=== PATIENT | female | born 1935 | race Caucasian/White ===

== ENCOUNTER 2017-09-10 10:29 | Inpatient (IN) | payer OTHER ==
[~2017-09-10] VITALS: Ht 152.4 cm; Wt 81.6 kg
[~2017-09-10 10:29] MED LIST: ACIDOPHILUS LA1 EACH PO; ALENDRONATE SOD70 MG; CELEXA PO; CIPRO500 MG PO; CITALOPRAM HBR40 MG; FOSAMAX70 MG; FOSAMAX70 MG PO; GLIMEPIRIDE4 MG; GLIMEPIRIDE4 MG PO; INVANZ1 G/VIAL IV; LEVAQUIN500 MG PO; LOTRISONE CREAM45 GM TOP; METFORMIN HCL1000 M1; METFORMIN HCL1000 M1 PO; METOPROLOL SUCC50 MG PO; MONTELUKAST SOD10 MG; MONTELUKAST SOD10 MG PO; NEURONTIN300 MG PO; POLY119PG PO; TRAM1TAB98
[2017-09-10] MEDS ORDERED: METFORMIN HCL500 MG (10:40)
[2017-09-17] MEDS ORDERED: GLIMEPIRIDE4 MG PO (10:58)
[2017-09-17] MEDS ORDERED: METOPROLOL SUCC50 MG PO (10:59)
[2017-09-17] MEDS ORDERED: METFORMIN HCL1000 M1 PO (10:59)
== END 2017-09-17 15:37 | disposition home health service (06) | DRG 872 ==
LOC: ER 10:29 → MEDJ 09-11 08:44 → ICU-2 09-11 08:44 → MEDJ 09-14 09:02
PROC: 8E0ZXY6 Isolation (ICD-10-PCS; principal; 2017-09-14)
DX: A41.51 Sepsis due to Escherichia coli [E. coli] (principal); N39.0 Urinary tract infection, site not specified; Z16.12 Extended spectrum beta lactamase (ESBL) resistance; I10 Essential (primary) hypertension; E11.65 Type 2 diabetes mellitus with hyperglycemia; J45.998 Other asthma; E87.6 Hypokalemia; B96.4 Proteus (mirabilis) (morganii) as the cause of diseases classified elsewhere

== ENCOUNTER 2017-11-19 09:35 | Outpatient (CLI) | payer OTHER ==
[~2017-11-19 09:35] MED LIST changes: +METFORMIN HCL500 MG
== END 2017-11-19 09:53 | disposition home or self-care (01) ==
LOC: RAD 09:35
DX: E11.9 Type 2 diabetes mellitus without complications (principal); I10 Essential (primary) hypertension

== ENCOUNTER 2019-10-10 11:15 | Inpatient (IN) | payer OTHER ==
[~2019-10-10] VITALS: Ht 152.4 cm; Wt 81.6 kg
[2019-10-10] MEDS ORDERED: ITCH RELIEF15 G1 TP (11:37)
--- NOTE | 2019-10-10 11:38 | NUR ---
PACIENTE ALERTA Y DESORIENTADA EN TIEMPO, EN COMPANIA DE CALIXTO HIJA QUIEN REFIERE LA PACIENTE PRESENTA DEBILIDAD Y DESORIENTACION HACE APROX DEMETRI SEMANA. HIJA REFIERE QUE LA PACIENTE LO UNICO QUE ESTA COMIENDO ES LIQUIDOS, QUE ESTA PRESENTANDO DEBILIDAD EN L[place] PIER[place]S Y NO CAMINA, TAMBIEN REFIERE INFECCION DE ORINA Y HONGO EN LA LENGUA DESDE HACE DEMETRI SEMANA. PACIENTE SE ENCUENTRA BAJO TRATAMIENTO CON BACTRIN Q12HRS X 5 ROGERS.
--- NOTE | 2019-10-10 13:12 | NUR ---
PACIENTE ALERTA Y ORIENTADA EN PERSONA Y LUGAR, EN COMPANIA DE CAL[place] HIJA QUIEN ES ORIENTADA SOBRE ORDENES MEDICAS, REFIEREN ENTENDER. SE COLECTAN MUESTRAS DE ISAAC, SE CANALIZA VENA Y SE ADMINISTRA KHAI ORDENADO.
[2019-10-11] MEDS ORDERED: METOPROLOL TART50 MG PO (14:58)
== END 2019-10-19 15:41 | disposition home or self-care (01) | DRG 690 ==
LOC: ER 11:15 → SURH 16:34 → MEDI 16:34 → MEDJ 16:34 → SURH 17:28
PROVIDERS: ADMIT Internal Medicine; ATTEND Internal Medicine
PROC: BW4GZZZ Ultrasonography of Pelvic Region (ICD-10-PCS; principal; 2019-10-10)
PROC: BW40ZZZ Ultrasonography of Abdomen (ICD-10-PCS; 2019-10-10)
PROC: 4A033R1 Measurement of Arterial Saturation, Peripheral, Percutaneous Approach (ICD-10-PCS; 2019-10-10)
PROC: 3E0F7GC Introduction of Other Therapeutic Substance into Respiratory Tract, Via Natural or Artificial Opening (ICD-10-PCS; 2019-10-10)
DX: N39.0 Urinary tract infection, site not specified (principal); Z16.12 Extended spectrum beta lactamase (ESBL) resistance; J45.909 Unspecified asthma, uncomplicated; I10 Essential (primary) hypertension; F32.9 Major depressive disorder, single episode, unspecified; E87.6 Hypokalemia; B96.1 Klebsiella pneumoniae [K. pneumoniae] as the cause of diseases classified elsewhere; E11.649 Type 2 diabetes mellitus with hypoglycemia without coma; N28.1 Cyst of kidney, acquired; Z74.01 Bed confinement status

== ENCOUNTER 2020-03-12 14:28 | Inpatient (IN) | payer OTHER ==
[~2020-03-12] VITALS: Ht 157.5 cm; Wt 68.0 kg
[~2020-03-12 14:28] MED LIST changes: +ITCH RELIEF15 G1 TP; +METOPROLOL TART50 MG PO
--- NOTE | 2020-03-12 14:36 | NUR ---
PACIENTE ALERTA Y ORIENTADA UNICAMENTE EN PERSONA, PARAMEDICOS REFIEREN HIPERGLICEMIA Y ABDOMEN DISTENDIDO, AL MOMENTO HIJA NO ESTA DISPONIBLE PARA COMPLETAR ENTREVISTA DEL TRIAGE.
--- NOTE | 2020-03-12 16:12 | NUR ---
PACIENTE ALERTA CON HX DE ALZHERIMER EN COMPANIA DE FAMILIAR. SE ORIENTA A PACIENTE Y CARLA SOBRE PROCEDIMEINTO Y TX, REFIERE ENTENDER. SE EXTRAE MUESTRAS DE LABORATORIO CON MEDIDAS ASEPTICAS Y ADMINISTRA MEDICAMENTOS MARY ORDEN MEDICA.
--- NOTE | 2020-03-13 | NUR ---
SE RECIBE FEMINA ALERTA Y DESORIENTADA EN ROCKY ESFERAS, DURMIENDO. SE TRATA DE DESPERTAR Y SE EXPRESA CONFUSA. AREA DE VENOPUNCION CHRISTINE DE EDEMA O ENROJECIMIENTO. RECIBIENDO IVF ORDENADO. ROSADO PATENTE DRENANDO ORINA COLOR AMARILLO INTENSO. SE MANTIENE EN ESPERA DE MEDICO CONSULTADO.
--- NOTE | 2020-03-13 07:08 | NUR ---
SE RECIBE PACIENTE ACMPANDA DE FAMILIAR.AL MOMENTO SE ENCUENTRA DORMIDA,CON CANALIZACION EN MANO IZQ ANGIO # 22,BARANDAS ELEVADAS POR CALIXTO SEGURIDAD.SE CONTINUA MONITOREANDO POR CAMBIOS SIGNIFICATIVOS,EN ESPERA DE CONSULTA CON DR GEORGE.
== END 2020-03-23 18:15 | disposition home or self-care (01) | DRG 689 ==
LOC: ER 14:28 → MEDI 03-13 10:54 → SEC-K 03-13 10:54 → MEDI 03-13 16:41 → MEDJ 03-13 16:41 → MEDI 03-13 16:41
PROVIDERS: ADMIT Internal Medicine; ATTEND Internal Medicine
PROC: BW21Y0Z Computerized Tomography (CT Scan) of Abdomen and Pelvis using Other Contrast, Unenhanced and Enhanced (ICD-10-PCS; principal; 2020-03-14)
PROC: BT43ZZZ Ultrasonography of Bilateral Kidneys (ICD-10-PCS; 2020-03-16)
DX: N39.0 Urinary tract infection, site not specified (principal); A41.89 Other specified sepsis; Z16.12 Extended spectrum beta lactamase (ESBL) resistance; Z20.828 Contact with and (suspected) exposure to other viral communicable diseases; Z74.01 Bed confinement status; E11.65 Type 2 diabetes mellitus with hyperglycemia

== ENCOUNTER 2021-05-01 16:10 | Emergency (ER) | payer OTHER ==
[~2021-05-01] VITALS: Ht 152.4 cm; Wt 86.2 kg
== END 2021-05-01 21:31 | disposition home or self-care (01) ==
LOC: ER 16:10
DX: R19.5 Other fecal abnormalities (principal)

== ENCOUNTER 2025-02-06 10:51 | Inpatient (IN) | payer OTHER ==
[~2025-02-06] VITALS: Ht 160 cm; Wt 45.4 kg
[2025-02-06] MEDS ORDERED: JANUVIA50 MG PO (11:21)
[2025-02-06] MEDS ORDERED: NAMENDA1 EACH PO (11:21)
[2025-02-06] MEDS ORDERED: FAMOTIDINE/PF 20 MG/2 ML VIAL IV ONE (11:45)
[2025-02-06] MEDS ORDERED: 0.9 % SODIUM CHLORIDE 1,000 ML IV ONE (11:45)
[2025-02-06] MEDS ORDERED: PIPERACILLIN/TAZOBACTAM SODIUM 3.375 GM VIAL IV ONE (11:45)
[2025-02-06 13:56] LABS: BASO % 0.1 % (0.1-1.2); EOS # 0.00 (0.04-0.54); EOS % 0.0 % (0.7-7.0); LYMPH # 1.02 (1.18-3.74); LYMPH % 5.2 % (19.3-53.1); MEAN PLATELET VOLUME 9.90 fl (9.4-12.4); MONO # 0.31 (0.24-0.82); MONO % 1.6 % (4.7-12.5); NEUT # 18.15 (1.56-6.13); NEUT % 92.5 % (34.0-71.1); RED CELL DISTRIBUTION WIDTH 16.2 % (11.6-14.4)
[2025-02-06 14:06] LABS: ERYTHROCYTE SEDIMENTATION RATE > 130 mm/hr (0-30)
[2025-02-06 14:08] LABS: ALT/SGPT 24.0 U/L (12-78); AST/SGOT 24.0 U/L (15-37); BILIRUBIN TOTAL 0.26 mg/dL (0.3-1.2); BUN CREA RATIO 61.0 (7.0-25.0); CREATININE SERUM 0.67 mg/dL (0.55-1.02); GFR 83.06; GLOBULINA 4.5 G/DL (2.4-3.5); GLUCOSE FASTING 192.0 mg/dL (65-100); OSMOLALITY SERUM 302.0 MOSM/KG (275-295)
[2025-02-06 14:27] LABS: BAND MAN 18.0 %; NEUTROPHILS MAN 77.0 %
[2025-02-06 14:28] LABS: LYMPHOCYTE MAN 4.0 %
[2025-02-06 15:36] LABS: URINE APPEARANCE Turbid; URINE BILIRRUBIN Negative (NEGATIVE); URINE BLOOD Moderate; URINE COLOR Yellow; URINE GLUCOSE Negative (NEGATIVE); URINE KETONE Trace (NEGATIVE); URINE LEUKOCYTE Large; URINE NITRATE Positive; URINE UROBILINOGEN 1.0 E.U./dl
[2025-02-06 15:42] LABS: URINE EPITHELIAL CELLS 128.9 uL (0.0-38.8); URINE RBC 748.8 uL (0.0-20.8)
[2025-02-06 15:47] LABS: COVID-19 AG NEGATIVE (NEGATIVE)
[2025-02-06 16:35] LABS: URINE PROTEIN 100 (NEGATIVE); URINE WBC > 5548.3 uL (0.0-23.2)
[2025-02-06 16:36] LABS: TYPE CELLS SQUAMOUS; URINE BACTERIA > 9821.5 uL (0.0-1933); URINE CAST > 21.83 uL (0.0-1.40)
[2025-02-06] MEDS ORDERED: VANCOMYCIN HCL 500 MG VIAL IU ONE (16:45)
[2025-02-06] MEDS ORDERED: POTASSIUM CHLORIDE IN WATER 100 ML IV ONE (16:45)
[2025-02-06] MEDS ORDERED: NOREPINEPHRINE BITARTRATE 8 MG in DEXTROSE 5 % IN WATER 250 ML IV SCH (18:45)
[2025-02-06] MEDS ORDERED: 0.9 % SODIUM CHLORIDE 1,000 ML IV SCH (18:45)
[2025-02-06] MEDS ORDERED: ACETAMINOPHEN 325 MG TABLET PO PRN (19:30)
[2025-02-06] MEDS ORDERED: DEXTROSE 50 % IN WATER 0.5 G/ML DISP.SYRIN IV PRN (19:30)
[2025-02-06] MEDS ORDERED: ONDANSETRON HCL 4 MG in 0.9 % SODIUM CHLORIDE 50 ML IV PRN (19:30)
[2025-02-06] MEDS ORDERED: INSULIN LISPRO 1,000 UNIT/10 ML UNITS SUBCUTANEO PRN (19:30)
[2025-02-06] MEDS ORDERED: 0.9 % SODIUM CHLORIDE 500 ML IV ONE (20:45)
[2025-02-06 23:57] VITALS: BP 110/83
[2025-02-07] VITALS (18 sets, daily range): BP systolic 92–138; BP diastolic 50–93; O2SAT 99–100
[2025-02-07] MEDS ORDERED: PIPERACILLIN/TAZOBACTAM SODIUM 3.375 GM in 0.9 % SODIUM CHLORIDE 100 ML IV SCH
[2025-02-07 04:25] LABS: BASO % 0.1 % (0.1-1.2); EOS # 0.00 (0.04-0.54); EOS % 0.0 % (0.7-7.0); LYMPH # 1.11 (1.18-3.74); LYMPH % 5.7 % (19.3-53.1); MEAN PLATELET VOLUME 9.90 fl (9.4-12.4); MONO # 0.22 (0.24-0.82); MONO % 1.1 % (4.7-12.5); NEUT # 17.92 (1.56-6.13); NEUT % 92.5 % (34.0-71.1); RED CELL DISTRIBUTION WIDTH 15.9 % (11.6-14.4)
[2025-02-07 04:28] LABS: ERYTHROCYTE SEDIMENTATION RATE 119 mm/hr (0-30)
[2025-02-07 04:40] LABS: INR 1.18
[2025-02-07 04:45] LABS: CHOL HDL RATIO 2.7 (0-5.0); HDL 40.0 mg/dl (40-60); LDL 49.0 mg/dl (0-130); VLDL 20.0 (0-39)
[2025-02-07 04:52] LABS: ALT/SGPT 23.0 U/L (12-78); AST/SGOT 16.0 U/L (15-37); BILIRUBIN TOTAL 0.31 mg/dL (0.3-1.2); BUN CREA RATIO 67.0 (7.0-25.0); CREATININE SERUM 0.54 mg/dL (0.55-1.02); GFR 106.54; GLOBULINA 4.3 G/DL (2.4-3.5); TSH 1.37 uIU/mL (0.358-3.74)
[2025-02-07 04:53] LABS: GLUCOSE FASTING 206.0 mg/dL (65-100); OSMOLALITY SERUM 299.0 MOSM/KG (275-295)
[2025-02-07] MEDS ORDERED: VANCOMYCIN HCL 500 MG VIAL IV SCH (09:00)
[2025-02-07] MEDS ORDERED: PANTOPRAZOLE SODIUM 40 MG/VIAL VIAL IV SCH (09:00)
[2025-02-07] MEDS ORDERED: RINGERS SOLUTION,LACTATED 1,000 ML IV SCH (10:15)
[2025-02-07] MEDS ORDERED: POTASSIUM CHLORIDE IN WATER 100 ML IV ONE (11:00)
[2025-02-07] MEDS ORDERED: SODIUM HYPOCHLORITE 1OZ TOP SCH (11:13)
[2025-02-07] MEDS ORDERED: AMINO ACIDS/PROTEIN HYDROLYS 30 ML BLIST.PACK PO SCH (13:00)
[2025-02-07] MEDS ORDERED: CITRIC ACID/SODIUM CITRATE 15 ML BLIST.PACK PO SCH (17:00)
[2025-02-08] VITALS (17 sets, daily range): BP systolic 78–120; BP diastolic 49–82; O2SAT 99–100
[2025-02-08] MEDS ORDERED: INSULIN LISPRO 1,000 UNIT/10 ML UNITS SUBCUTANEO PRN (06:30)
[2025-02-08] MEDS ORDERED: TAMSULOSIN HCL 0.4 MG CAP PO NR (10:45)
[2025-02-08 15:16] LABS: BASO % 0.5 % (0.1-1.2); EOS # 0.00 (0.04-0.54); EOS % 0.0 % (0.7-7.0); LYMPH # 0.75 (1.18-3.74); LYMPH % 4.3 % (19.3-53.1); MEAN PLATELET VOLUME 10.10 fl (9.4-12.4); MONO # 0.12 (0.24-0.82); MONO % 0.7 % (4.7-12.5); NEUT # 16.21 (1.56-6.13); NEUT % 93.4 % (34.0-71.1); RED CELL DISTRIBUTION WIDTH 15.6 % (11.6-14.4)
[2025-02-08 15:54] LABS: CHOL HDL RATIO 3.2 (0-5.0); HDL 33.0 mg/dl (40-60); LDL 52.0 mg/dl (0-130); VLDL 20.0 (0-39)
[2025-02-08 15:57] LABS: ALT/SGPT 17.0 U/L (12-78); AST/SGOT 23.0 U/L (15-37); BILIRUBIN TOTAL 0.33 mg/dL (0.3-1.2); BUN CREA RATIO 67.0 (7.0-25.0); CREATININE SERUM 0.43 mg/dL (0.55-1.02); GFR 138.57; GLOBULINA 3.7 G/DL (2.4-3.5); GLUCOSE FASTING 173.0 mg/dL (65-100); OSMOLALITY SERUM 304.0 MOSM/KG (275-295)
[2025-02-08] MEDS ORDERED: MAGNESIUM SULFATE IN WATER 4 GM/100 ML PIGGYBACK IV STA (16:09)
[2025-02-08] MEDS ORDERED: AA 4.25%/CAL/LYTES/DEXT 5% 1,000 ML PERIFERAL SCH (17:00)
[2025-02-08] MEDS ORDERED: POTASSIUM CHLORIDE IN WATER 40 MEQ/100 ML PIGGYBAG IV SCH (20:00)
[2025-02-09] VITALS (13 sets, daily range): BP systolic 80–122; BP diastolic 53–95; O2SAT 100
[2025-02-09 06:30] LABS: BASO % 0.4 % (0.1-1.2); EOS # 0.00 (0.04-0.54); EOS % 0.0 % (0.7-7.0); LYMPH # 0.59 (1.18-3.74); LYMPH % 3.2 % (19.3-53.1); MEAN PLATELET VOLUME 9.90 fl (9.4-12.4); MONO # 0.14 (0.24-0.82); MONO % 0.8 % (4.7-12.5); NEUT # 17.44 (1.56-6.13); NEUT % 94.6 % (34.0-71.1); RED CELL DISTRIBUTION WIDTH 15.5 % (11.6-14.4)
[2025-02-09 07:20] LABS: ALT/SGPT 18.0 U/L (12-78); AST/SGOT 17.0 U/L (15-37); BILIRUBIN TOTAL 0.28 mg/dL (0.3-1.2); BUN CREA RATIO 55.0 (7.0-25.0); CREATININE SERUM 0.53 mg/dL (0.55-1.02); GFR 108.87; GLOBULINA 3.9 G/DL (2.4-3.5)
[2025-02-09 07:24] LABS: GLUCOSE FASTING 251.0 mg/dL (65-100); OSMOLALITY SERUM 307.0 MOSM/KG (275-295)
[2025-02-09] MEDS ORDERED: VANCOMYCIN HCL 500 MG VIAL IV NR (08:30)
[2025-02-09] MEDS ORDERED: TAMSULOSIN HCL 0.4 MG CAP PO SCH (09:00)
[2025-02-09] MEDS ORDERED: SODIUM CHLORIDE 0.45 % 1,000 ML IV SCH (10:45)
[2025-02-09] MEDS ORDERED: SODIUM POLYSTYRENE SULFONATE 15 G/4 TSP TSP NGT NR (10:45)
[2025-02-09] MEDS ORDERED: MEROPENEM 500 MG/VIAL VIAL IV SCH (12:00)
[2025-02-10] VITALS (12 sets, daily range): BP systolic 86–129; BP diastolic 49–75; O2SAT 100
[2025-02-10 07:31] LABS: BASO % 0.1 % (0.1-1.2); EOS # 0.00 (0.04-0.54); EOS % 0.0 % (0.7-7.0); LYMPH # 0.65 (1.18-3.74); LYMPH % 5.1 % (19.3-53.1); MEAN PLATELET VOLUME 10.30 fl (9.4-12.4); MONO # 0.12 (0.24-0.82); MONO % 0.9 % (4.7-12.5); NEUT # 11.69 (1.56-6.13); NEUT % 92.2 % (34.0-71.1); RED CELL DISTRIBUTION WIDTH 15.7 % (11.6-14.4)
[2025-02-10 07:59] LABS: ALT/SGPT 14.0 U/L (12-78); AST/SGOT 16.0 U/L (15-37); BILIRUBIN TOTAL 0.16 mg/dL (0.3-1.2); BUN CREA RATIO 71.0 (7.0-25.0); CREATININE SERUM 0.42 mg/dL (0.55-1.02); GFR 142.39; GLOBULINA 3.3 G/DL (2.4-3.5); GLUCOSE FASTING 170.0 mg/dL (65-100); OSMOLALITY SERUM 303.0 MOSM/KG (275-295)
[2025-02-10] MEDS ORDERED: SODIUM CHLORIDE 0.45 % 1,000 ML IV STA (10:26)
[2025-02-10 10:57] LABS: BAND MAN 5.0 %; LYMPHOCYTE MAN 2.0 %; MYELOCYTE 1.0 %; NEUTROPHILS MAN 92.0 %
[2025-02-10] MEDS ORDERED: CALCIUM GLUCONATE 100 MG/ML VIAL IV NR (11:45)
[2025-02-10] MEDS ORDERED: POTASSIUM CHLORIDE 20MEQ/100ML H2O PB IV NR (11:45)
[2025-02-11] VITALS (15 sets, daily range): BP systolic 87–115; BP diastolic 52–92; O2SAT 100
[2025-02-11 05:18] LABS: ALT/SGPT 17.0 U/L (12-78); AST/SGOT 39.0 U/L (15-37); BILIRUBIN TOTAL 0.4 mg/dL (0.3-1.2); GLOBULINA 3.7 G/DL (2.4-3.5); GLUCOSE FASTING 154.0 mg/dL (65-100); OSMOLALITY SERUM 293.0 MOSM/KG (275-295)
[2025-02-11 05:25] LABS: BASO % 0.2 % (0.1-1.2); EOS # 0.01 (0.04-0.54); EOS % 0.1 % (0.7-7.0); LYMPH # 0.95 (1.18-3.74); LYMPH % 8.9 % (19.3-53.1); MEAN PLATELET VOLUME 10.50 fl (9.4-12.4); MONO # 0.19 (0.24-0.82); MONO % 1.8 % (4.7-12.5); NEUT # 9.28 (1.56-6.13); NEUT % 87.0 % (34.0-71.1); RED CELL DISTRIBUTION WIDTH 16.3 % (11.6-14.4)
[2025-02-11 05:27] LABS: BUN CREA RATIO 75.0 (7.0-25.0); GFR 227.35
[2025-02-11 05:31] LABS: CREATININE SERUM 0.28 mg/dL (0.55-1.02)
[2025-02-11] MEDS ORDERED: POTASSIUM CHLORIDE IN WATER 40 MEQ/100 ML PIGGYBAG IV STA (07:14)
[2025-02-11] MEDS ORDERED: CALCIUM GLUCONATE 100 MG/ML VIAL IV NR (07:15)
[2025-02-11] MEDS ORDERED: POTASSIUM CHLORIDE IN WATER 40 MEQ/100 ML PIGGYBAG IV NR (12:00)
[2025-02-11 14:02] LABS: ALT/SGPT 13.0 U/L (12-78); AST/SGOT 23.0 U/L (15-37); BILIRUBIN TOTAL 0.34 mg/dL (0.3-1.2); GLOBULINA 3.3 G/DL (2.4-3.5); GLUCOSE FASTING 139.0 mg/dL (65-100); OSMOLALITY SERUM 295.0 MOSM/KG (275-295)
[2025-02-11 14:05] LABS: BUN CREA RATIO 100.0 (7.0-25.0); CREATININE SERUM 0.19 mg/dL (0.55-1.02)
[2025-02-11] MEDS ORDERED: CALCIUM GLUCONATE 100 MG/ML VIAL IV STA (14:20)
[2025-02-11] MEDS ORDERED: SUGAMMADEX SODIUM 200 MG/2 ML VIAL IV ONE (19:20)
[2025-02-12 04:00] VITALS: BP 97/53; O2SAT 100
[2025-02-12 07:42] VITALS: BP 103/53; O2SAT 100
[2025-02-12 07:59] LABS: ALT/SGPT 15 U/L (12-78); AST/SGOT 26 U/L (15-37); BILIRUBIN TOTAL 0.28 mg/dL (0.3-1.2); GLOBULINA 3.3 G/DL (2.4-3.5); GLUCOSE FASTING 103 mg/dL (65-100); OSMOLALITY SERUM 290 MOSM/KG (275-295)
[2025-02-12 08:36] LABS: BASO % 0.4 % (0.1-1.2); EOS # 0.08 (0.04-0.54); EOS % 0.7 % (0.7-7.0); LYMPH # 1.29 (1.18-3.74); LYMPH % 11.5 % (19.3-53.1); MEAN PLATELET VOLUME 11.50 fl (9.4-12.4); MONO # 0.17 (0.24-0.82); MONO % 1.5 % (4.7-12.5); NEUT # 9.50 (1.56-6.13); NEUT % 84.6 % (34.0-71.1); RED CELL DISTRIBUTION WIDTH 16.9 % (11.6-14.4)
[2025-02-12 08:51] LABS: BUN CREA RATIO 106 (7.0-25.0); GFR 467.22
[2025-02-12 08:52] LABS: CREATININE SERUM < 0.15 mg/dL (0.55-1.02)
[2025-02-12] MEDS ORDERED: POTASSIUM PHOS,M-BASIC-D-BASIC 3 MM/ML VIAL IV ONE (09:15)
[2025-02-12 10:05] LABS: BAND MAN 1.0 %; LYMPHOCYTE MAN 8.0 %; MONOCYTE MAN 2.0 %; NEUTROPHILS MAN 88.0 %
[2025-02-12 10:06] LABS: EOSINOPHIL MAN 1.0 %
[2025-02-12] MEDS ORDERED: MAGNESIUM SULFATE IN WATER 4 GM/100 ML PIGGYBACK IV NR (10:30)
[2025-02-12 12:00] VITALS: BP 84/66; O2SAT 100
[2025-02-12] MEDS ORDERED: CALCIUM GLUCONATE 100 MG/ML VIAL IV NR (12:00)
[2025-02-12 15:18] VITALS: BP 86/49; O2SAT 100
[2025-02-12] MEDS ORDERED: POTASSIUM CHLORIDE IN WATER 100 ML IV NR (17:00)
[2025-02-12 20:00] VITALS: O2SAT 100
[2025-02-12 21:51] LABS: ALT/SGPT 14 U/L (12-78); AST/SGOT 18 U/L (15-37); BILIRUBIN TOTAL 0.29 mg/dL (0.3-1.2); GLOBULINA 2.9 G/DL (2.4-3.5); GLUCOSE FASTING 95 mg/dL (65-100); OSMOLALITY SERUM 285 MOSM/KG (275-295)
[2025-02-12 21:52] LABS: BUN CREA RATIO 93 (7.0-25.0); CREATININE SERUM < 0.15 mg/dL (0.55-1.02); GFR 467.22
[2025-02-12 23:44] VITALS: BP 95/55; O2SAT 100
[2025-02-13] VITALS (10 sets, daily range): BP systolic 80–109; BP diastolic 53–71; O2SAT 98–100
[2025-02-13 07:47] LABS: BASO % 0.7 % (0.1-1.2); EOS # 0.04 (0.04-0.54); EOS % 0.3 % (0.7-7.0); LYMPH # 0.54 (1.18-3.74); LYMPH % 4.3 % (19.3-53.1); MEAN PLATELET VOLUME 10.40 fl (9.4-12.4); MONO # 0.10 (0.24-0.82); MONO % 0.8 % (4.7-12.5); NEUT # 11.80 (1.56-6.13); NEUT % 92.9 % (34.0-71.1); RED CELL DISTRIBUTION WIDTH 17.2 % (11.6-14.4)
[2025-02-13 08:28] LABS: ALT/SGPT 16 U/L (12-78); AST/SGOT 26 U/L (15-37); BILIRUBIN TOTAL 0.29 mg/dL (0.3-1.2); BUN CREA RATIO 80 (7.0-25.0); CREATININE SERUM < 0.15 mg/dL (0.55-1.02); GFR 467.22; GLOBULINA 3.2 G/DL (2.4-3.5); GLUCOSE FASTING 136 mg/dL (65-100); OSMOLALITY SERUM 283 MOSM/KG (275-295)
[2025-02-13 08:42] LABS: BAND MAN 1.0 %; LYMPHOCYTE MAN 3.0 %; MONOCYTE MAN 1.0 %; NEUTROPHILS MAN 95.0 %
[2025-02-13] MEDS ORDERED: CITRIC ACID/SODIUM CITRATE 30 ML BLIST.PACK PO SCH (13:00)
[2025-02-13] MEDS ORDERED: CALCIUM CARBONATE/VITAMIN D3 1 TAB TABLET PO SCH (13:00)
[2025-02-13] MEDS ORDERED: PANTOPRAZOLE SODIUM 40 MG/VIAL VIAL IV NR (17:00)
[2025-02-13] MEDS ORDERED: SODIUM CHLORIDE 0.45 % 500 ML IV SCH (18:45)
[2025-02-14 06:42] LABS: BASO % 0.3 % (0.1-1.2); EOS # 0.01 (0.04-0.54); EOS % 0.1 % (0.7-7.0); LYMPH # 0.39 (1.18-3.74); LYMPH % 3.7 % (19.3-53.1); MEAN PLATELET VOLUME 11.80 fl (9.4-12.4); MONO # 0.10 (0.24-0.82); MONO % 0.9 % (4.7-12.5); NEUT # 10.02 (1.56-6.13); NEUT % 94.6 % (34.0-71.1); RED CELL DISTRIBUTION WIDTH 16.8 % (11.6-14.4)
[2025-02-14 07:22] LABS: ALT/SGPT 16 U/L (12-78); AST/SGOT 25 U/L (15-37); BILIRUBIN TOTAL 0.26 mg/dL (0.3-1.2)
[2025-02-14 07:56] LABS: ERYTHROCYTE SEDIMENTATION RATE 55 mm/hr (0-30)
[2025-02-14 07:57] LABS: BUN CREA RATIO 140 (7.0-25.0); CREATININE SERUM < 0.15 mg/dL (0.55-1.02); GFR 467.22; GLOBULINA 3.0 G/DL (2.4-3.5); GLUCOSE FASTING 234 mg/dL (65-100); OSMOLALITY SERUM 295 MOSM/KG (275-295)
[2025-02-14] MEDS ORDERED: ENOXAPARIN SODIUM 40 MG/0.4 ML SYRINGE SUBCUTANEO SCH (09:00)
[2025-02-14] MEDS ORDERED: PANTOPRAZOLE SODIUM 40 MG/VIAL VIAL IV SCH (09:00)
[2025-02-14] MEDS ORDERED: MAGNESIUM SULFATE IN WATER 50 ML IV STA (10:53)
[2025-02-14] MEDS ORDERED: POTASSIUM CHLORIDE IN WATER 40 MEQ/100 ML PIGGYBAG IV SCH ×2 (13:00→21:00)
[2025-02-14 17:46] VITALS: BP 90/53; O2SAT 98
[2025-02-15 02:10] VITALS: BP 116/69; O2SAT 99
[2025-02-15] MEDS ORDERED: INSULIN NPH HUMAN ISOPHANE 1,000 UNITS/10 ML UNITS SUBCUTANEO SCH (09:00)
[2025-02-15 16:41] VITALS: BP 86/59; O2SAT 96
[2025-02-15 19:37] LABS: BASO % 0.2 % (0.1-1.2); EOS # 0.03 (0.04-0.54); EOS % 0.3 % (0.7-7.0); LYMPH # 0.97 (1.18-3.74); LYMPH % 11.1 % (19.3-53.1); MONO # 0.26 (0.24-0.82); MONO % 3.0 % (4.7-12.5); NEUT # 7.42 (1.56-6.13); NEUT % 85.1 % (34.0-71.1); RED CELL DISTRIBUTION WIDTH 16.9 % (11.6-14.4)
[2025-02-15 20:07] LABS: ALT/SGPT 16 U/L (12-78); AST/SGOT 24 U/L (15-37); BILIRUBIN TOTAL 0.19 mg/dL (0.3-1.2); GLOBULINA 3.1 G/DL (2.4-3.5); GLUCOSE FASTING 65 mg/dL (65-100); OSMOLALITY SERUM 293 MOSM/KG (275-295)
[2025-02-15 20:10] LABS: BAND MAN 1.0 %; LYMPHOCYTE MAN 11.0 %; NEUTROPHILS MAN 84.0 %
[2025-02-15 20:11] LABS: EOSINOPHIL MAN 2.0 %; MYELOCYTE 2.0 %
[2025-02-15 20:23] LABS: BUN CREA RATIO 233 (7.0-25.0); GFR 467.22
[2025-02-15 20:25] LABS: CREATININE SERUM < 0.15 mg/dL (0.55-1.02)
[2025-02-15] MEDS ORDERED: POTASSIUM PHOS,M-BASIC-D-BASIC 3 MM/ML VIAL IV ONE (21:00)
[2025-02-16] VITALS (7 sets, daily range): BP systolic 69–123; BP diastolic 47–76; O2SAT 96–98
[2025-02-16 06:56] LABS: BASO % 0.5 % (0.1-1.2); EOS # 0.04 (0.04-0.54); EOS % 0.4 % (0.7-7.0); LYMPH # 0.92 (1.18-3.74); LYMPH % 9.7 % (19.3-53.1); MEAN PLATELET VOLUME 12.60 fl (9.4-12.4); MONO # 0.31 (0.24-0.82); MONO % 3.3 % (4.7-12.5); NEUT # 8.10 (1.56-6.13); NEUT % 85.5 % (34.0-71.1); RED CELL DISTRIBUTION WIDTH 16.9 % (11.6-14.4)
[2025-02-16 07:19] LABS: ALT/SGPT 14 U/L (12-78); AST/SGOT 19 U/L (15-37); BILIRUBIN TOTAL 0.16 mg/dL (0.3-1.2); BUN CREA RATIO 233 (7.0-25.0); GFR 467.22; GLOBULINA 2.8 G/DL (2.4-3.5); GLUCOSE FASTING 191 mg/dL (65-100); OSMOLALITY SERUM 304 MOSM/KG (275-295)
[2025-02-16 07:20] LABS: CREATININE SERUM < 0.15 mg/dL (0.55-1.02)
[2025-02-16] MEDS ORDERED: NOREPINEPHRINE BITARTRATE 8 MG in DEXTROSE 5 % IN WATER 250 ML IV SCH ×2 (11:15→11:45)
[2025-02-16] MEDS ORDERED: VANCOMYCIN HCL 1,000 MG VIAL IV SCH (18:09)
[2025-02-16] MEDS ORDERED: VANCOMYCIN HCL 5 MG/ML REDILUIDO IV NR (19:00)
[2025-02-17 00:29] VITALS: BP 85/58; O2SAT 100
[2025-02-17 00:44] VITALS: BP 99/74
[2025-02-17] MEDS ORDERED: VANCOMYCIN HCL 5 MG/ML REDILUIDO IV SCH (09:00)
[2025-02-17 10:47] VITALS: BP 95/63; O2SAT 97
[2025-02-17 11:47] LABS: URINE APPEARANCE Cloudy; URINE BILIRRUBIN Negative (NEGATIVE); URINE BLOOD Moderate; URINE COLOR Yellow; URINE KETONE Negative (NEGATIVE); URINE LEUKOCYTE Moderate; URINE NITRATE Negative; URINE PROTEIN 30 (NEGATIVE); URINE UROBILINOGEN 0.2 E.U./dl
[2025-02-17 11:50] LABS: URINE BACTERIA 99.6 uL (0.0-1933); URINE EPITHELIAL CELLS 18.7 uL (0.0-38.8); URINE RBC 200.4 uL (0.0-20.8); URINE WBC 990.8 uL (0.0-23.2)
[2025-02-17 12:08] LABS: URINE CAST 0.73 uL (0.0-1.40); URINE GLUCOSE 100 MG/DL (NEGATIVE)
[2025-02-17 18:06] VITALS: BP 116/78; O2SAT 97
[2025-02-18 00:59] VITALS: BP 108/71; O2SAT 98
[2025-02-18 07:46] VITALS: BP 128/73; O2SAT 95
[2025-02-18] MEDS ORDERED: INSULIN NPH HUMAN ISOPHANE 1,000 UNITS/10 ML UNITS SUBCUTANEO STA (09:22)
[2025-02-18] MEDS ORDERED: FLUCONAZOLE IN NACL,ISO-OSM 200 MG/100 ML PIGGYBAG IV STA (10:52)
[2025-02-18 14:32] VITALS: BP 131/73; O2SAT 95
[2025-02-18 16:00] VITALS: BP 111/62; O2SAT 91
[2025-02-18 23:19] LABS: BASO % 0.3 % (0.1-1.2); EOS # 0.04 (0.04-0.54); EOS % 0.3 % (0.7-7.0); LYMPH # 0.98 (1.18-3.74); LYMPH % 6.8 % (19.3-53.1); MONO # 0.30 (0.24-0.82); MONO % 2.1 % (4.7-12.5); NEUT # 13.04 (1.56-6.13); NEUT % 89.9 % (34.0-71.1); RED CELL DISTRIBUTION WIDTH 16.8 % (11.6-14.4)
[2025-02-18 23:49] LABS: ALT/SGPT 15.0 U/L (12-78); AST/SGOT 29.0 U/L (15-37); BILIRUBIN TOTAL 0.22 mg/dL (0.3-1.2); GLOBULINA 3.3 G/DL (2.4-3.5)
[2025-02-18 23:52] LABS: BUN CREA RATIO 183.0 (7.0-25.0); GFR 271.6; OSMOLALITY SERUM 317.0 MOSM/KG (275-295)
[2025-02-18 23:54] LABS: CREATININE SERUM 0.24 mg/dL (0.55-1.02); GLUCOSE FASTING 380.0 mg/dL (65-100)
[2025-02-19 02:39] VITALS: BP 91/60; O2SAT 86
[2025-02-19 08:18] VITALS: BP 103/70; O2SAT 85
[2025-02-19] MEDS ORDERED: INSULIN NPH HUMAN ISOPHANE 1,000 UNITS/10 ML UNITS SUBCUTANEO SCH ×2 (09:00→17:00)
[2025-02-19] MEDS ORDERED: FLUCONAZOLE IN NACL,ISO-OSM 50 ML IV SCH (09:00)
[2025-02-19] MEDS ORDERED: POTASSIUM PHOS,M-BASIC-D-BASIC 15 MM in 0.9 % SODIUM CHLORIDE 250 ML IV ONE (11:00)
[2025-02-19] MEDS ORDERED: INSULIN REGULAR, HUMAN 1,000 UNIT/10 ML UNITS IV STA (12:57)
[2025-02-19] MEDS ORDERED: INSULIN NPH HUMAN ISOPHANE 1,000 UNITS/10 ML UNITS SUBCUTANEO STA (12:57)
[2025-02-19 12:59] LABS: ALT/SGPT 16.0 U/L (12-78); AST/SGOT 26.0 U/L (15-37); BILIRUBIN TOTAL 0.3 mg/dL (0.3-1.2); BUN CREA RATIO 139.0 (7.0-25.0); CREATININE SERUM 0.38 mg/dL (0.55-1.02); GFR 159.82; GLOBULINA 3.6 G/DL (2.4-3.5)
[2025-02-19] MEDS ORDERED: FLUCONAZOLE IN NACL,ISO-OSM 2 MG/ML ML IV SCH (13:00)
[2025-02-19 13:05] LABS: GLUCOSE FASTING 543.0 mg/dL (65-100); OSMOLALITY SERUM 328.0 MOSM/KG (275-295)
[2025-02-19 16:00] VITALS: BP 84/54; O2SAT 60
[2025-02-20] MEDS ORDERED: INSULIN NPH HUMAN ISOPHANE 1,000 UNITS/10 ML UNITS SUBCUTANEO SCH (09:00)
== END 2025-02-19 17:27 | disposition expired | DRG 592 ==
LOC: ER 10:51 → ICU-2 18:41 → ICU 18:41 → SURH 02-13 17:21
PROVIDERS: General Practice; Internal Medicine Infectious Disease; ADMIT Internal Medicine; ATTEND Internal Medicine
PROC: BW21ZZZ Computerized Tomography (CT Scan) of Abdomen and Pelvis (ICD-10-PCS; 2025-02-06)
PROC: 0HB6XZZ Excision of Back Skin, External Approach (ICD-10-PCS; principal; 2025-02-07)
PROC: 0HBKXZZ Excision of Right Lower Leg Skin, External Approach (ICD-10-PCS; 2025-02-07)
PROC: 02HV33Z Insertion of Infusion Device into Superior Vena Cava, Percutaneous Approach (ICD-10-PCS; 2025-02-07)
PROC: 30243N1 Transfusion of Nonautologous Red Blood Cells into Central Vein, Percutaneous Approach (ICD-10-PCS; 2025-02-07)
PROC: 0HBLXZZ Excision of Left Lower Leg Skin, External Approach (ICD-10-PCS; 2025-02-09)
PROC: 0HBKXZZ Excision of Right Lower Leg Skin, External Approach (ICD-10-PCS; 2025-02-09)
PROC: 0DH60UZ Insertion of Feeding Device into Stomach, Open Approach (ICD-10-PCS; 2025-02-11)
PROC: B54PZZZ Ultrasonography of Bilateral Upper Extremity Veins (ICD-10-PCS; 2025-02-16)
PROC: 4A12X4Z Monitoring of Cardiac Electrical Activity, External Approach (ICD-10-PCS; 2025-02-19)
DX: L89.154 Pressure ulcer of sacral region, stage 4 (principal); R65.21 Severe sepsis with septic shock; N39.0 Urinary tract infection, site not specified; E87.20 Acidosis, unspecified; I46.9 Cardiac arrest, cause unspecified; D64.9 Anemia, unspecified; E87.6 Hypokalemia; N20.0 Calculus of kidney; N21.0 Calculus in bladder; Z74.01 Bed confinement status; B96.20 Unspecified Escherichia coli [E. coli] as the cause of diseases classified elsewhere; B96.1 Klebsiella pneumoniae [K. pneumoniae] as the cause of diseases classified elsewhere; B96.4 Proteus (mirabilis) (morganii) as the cause of diseases classified elsewhere; B95.2 Enterococcus as the cause of diseases classified elsewhere; E11.9 Type 2 diabetes mellitus without complications; Z79.4 Long term (current) use of insulin; D72.829 Elevated white blood cell count, unspecified; Z66 Do not resuscitate; R09.02 Hypoxemia